=== PATIENT | female | born 1955 | race Caucasian/White ===

== ENCOUNTER 2018-11-07 14:10 | Emergency (ER) | payer MEDICARE, BC ==
[~2018-11-07] VITALS: Ht 157.5 cm; Wt 70.4 kg
[~2018-11-07 14:10] MED LIST: CYCL10TA7 PO; HYDR-4011 PO; NAPR-985 PO
[2018-11-07 14:14] VITALS: Ht 157.5 cm; Wt 70.4 kg
[2018-11-07] MEDS ORDERED: morphine 4 MG/ML VIAL IV STA (14:41)
[2018-11-07] MEDS ORDERED: ONDANSETRON 4 MG INJ IV STA (14:41)
[2018-11-07] MEDS ORDERED: SOD CHLORIDE 0.9% 1,000 ML IV STA (14:41)
[2018-11-07] MEDS ORDERED: IOHEXOL 300MG/ML 150 ML BTL ONE (15:47)
[2018-11-07] MEDS ORDERED: SOD CHLORIDE 0.9% 100 ML ONE (15:47)
[2018-11-07 16:40] VITALS: BP 113/61; PULSE 69; RESP 18
== END 2018-11-07 16:56 | disposition home or self-care (01) ==
LOC: FTE 14:10
DX: M54.9 Dorsalgia, unspecified (principal)
CPT/HCPCS: 36415; 72220; 74177; 80053; 81003; 83690; 85025; 96374; 96375; 99285; J2270; J2405; J7030; Q9967